=== PATIENT | female | born 1995 | race African-American/Black ===

== ENCOUNTER 2021-05-19 20:00 | Emergency (ER) | payer OTHER ==
[~2021-05-19] VITALS: Ht 157.5 cm; Wt 70.8 kg
--- NOTE | 2021-05-19 21:07 | NUR ---
PATIENT BIBS C/O "BUGS CRAWLING ALL OVER ME". PATIENT ALERT AND ORIENTED X3. AMBULATORY WITH NON LABORED BREATHING. PLACED IN BED 06 AWAITING MD CERON.
[2021-05-19] MEDS ORDERED: CEPH500C2 PO ×2 (21:42→22:30)
[2021-05-19] MEDS ORDERED: TDAP [DIPH/PERTUSSIS/TET] 0.5 ML VIAL IM ONE (22:11)
[2021-05-19] MEDS: TDAP [DIPH/PERTUSSIS/TET] 0.5 ML VIAL IM ONE (22:16)
--- NOTE | 2021-05-19 22:35 | NUR ---
Patient discharged to home in stable condition. Written and verbal after care instructions given. Patient verbalizes understanding of instruction.
[2021-05-19 23:49] VITALS: BP 128/70
== END 2021-05-19 23:50 | disposition home or self-care (01) ==
LOC: ER 20:10
DX: T63.331A Toxic effect of venom of brown recluse spider, accidental (unintentional), initial encounter (principal); F45.8 Other somatoform disorders; Z79.899 Other long term (current) drug therapy; Y92.89 Other specified places as the place of occurrence of the external cause
CPT/HCPCS: 90715